=== PATIENT | female | born 1945 | race African-American/Black ===

== ENCOUNTER 2018-11-03 17:03 | Inpatient (IN) | payer MEDICARE ==
[~2018-11-03] VITALS: Ht 160 cm; Wt 57.2 kg
--- NOTE | 2018-11-03 17:09 | NUR ---
came in via ambulance. from [facility] for 8 days.
--- NOTE | 2018-11-03 17:10 | NUR ---
patient is verbally communicative. seen by dr sky
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
--- NOTE | 2018-11-03 17:17 | NUR ---
found not four
[2018-11-03 17:30] LABS: BASOPHILS # (AUTO) 0.1 K/uL (0.0-8.0); BASOPHILS % (AUTO) 1.2 % (0.0-2.0); EOSINOPHILS # (AUTO) 0.1 K/uL (0.0-0.7); EOSINOPHILS % (AUTO) 1.3 % (0.0-7.0); HEMATOCRIT 38.6 % (31.2-41.9); HEMOGLOBIN 12.6 g/dL (10.9-14.3); LYMPHOCYTES # (AUTO) 1.6 K/uL (20.0-40.0); LYMPHOCYTES % (AUTO) 34.6 % (20.5-51.5); MEAN CORPUSCULAR HEMOGLOBIN 28.1 uug (24.7-32.8); MEAN CORPUSCULAR HGB CONC 33 g/dL (32.3-35.6); MEAN CORPUSCULAR VOLUME 86.5 fL (75.5-95.3); MONOCYTES # (AUTO) 0.5 K/uL (2.0-10.0); MONOCYTES % (AUTO) 11.9 % (0.0-11.0); NEUTROPHILS # (AUTO) 2.3 K/uL (1.8-8.9); PLATELET COUNT (AUTO) 332 K/uL (179-408); RED BLOOD CELL COUNT(AUTO) 4.47 MIL/uL (3.63-4.92); WHITE BLOOD COUNT (AUTO) 4.5 K/uL (3.8-11.8)
[2018-11-03 17:37] LABS: CARBON DIOXIDE 26 mmol/L (21-32); CHLORIDE 101 mmol/L (98-107); GLUCOSE 97 mg/dL (74-106); POTASSIUM 4.6 mmol/L (3.5-5.1); UREA NITROGEN, BLOOD 26 mg/dL (7-18)
[2018-11-03 17:42] LABS: ALANINE AMINOTRANSFERASE 17 U/L (14-59); ALKALINE PHOSPHATASE 88 U/L (50-136); ASPARTATE AMINOTRANSFERASE 17 U/L (15-37); BILIRUBIN,DIRECT 0.2 mg/dL (0.0-0.2); BILIRUBIN,TOTAL 0.6 mg/dL (0.2-1.0); TOTAL PROTEIN, SERUM 7.6 g/dL (6.4-8.2)
[2018-11-03 17:44] LABS: ACETAMINOPHEN < 2.0 ug/mL (10-30)
[2018-11-03 17:45] LABS: ETHANOL < 3 MG/DL (0-0)
--- NOTE | 2018-11-03 17:49 | NUR ---
Call placed to [facility], ETA 60 minutes.
--- NOTE | 2018-11-03 17:53 | NUR ---
waiting for Vivienne to inform us of admission
--- NOTE | 2018-11-03 18:31 | NUR ---
waiting for Pinky.
[2018-11-03 18:42] LABS: *BILIRUBIN,URIN NEGATIVE (NEGATIVE); *BLOOD, URINE NEGATIVE (NEGATIVE); *CLARITY,URINE CLEAR (CLEAR); *COLOR,URINE YELLOW (YELLOW); *KETONES,URINE NEGATIVE (NEGATIVE); LEUKOCYTE ESTERASE ,URINE TRACE (NEGATIVE); NITRITE, URINE NEGATIVE (NEGATIVE); UGLUCOSE NEGATIVE (NEGATIVE)
[2018-11-03 19:01] LABS: RBC,URINE 0-3 /HPF (0-3)
[2018-11-03 19:02] LABS: SQUAMOUS EPITHELIAL CELL,UR FEW /HPF (NONE SEEN)
[2018-11-03 19:04] LABS: *AMPHETAMINE, URINE NEGATIVE (NEGATIVE); *BARBITURATE, URINE NEGATIVE (NEGATIVE); *CANNABINOID, URINE NEGATIVE (NEGATIVE); *COCCAINE, URINE NEGATIVE (NEGATIVE); *OPIATE, URINE NEGATIVE (NEGATIVE); *PHENCYCLIDINE SCREEN,URINE NEGATIVE (NEGATIVE)
--- NOTE | 2018-11-03 19:08 | NUR ---
Assumed care of patient. Patient pending inpatient admission to [facility]. No acute distress noted. Direct observation ongoing.
--- NOTE | 2018-11-03 19:09 | NUR ---
pinky here and assessed patient
--- NOTE | 2018-11-03 19:52 | NUR ---
Report to Stacy VOGT on [facility]HU
--- NOTE | 2018-11-03 20:10 | NUR ---
Pt. admitted to [facility] , under care of Dr. Carballo/Kathy. Belongs List completed
--- NOTE | 2018-11-03 20:15 | NUR ---
Received patient via wheelchair accompanied by ER Nurse. Patient is alert, oriented x 2, and able to ambulate. Patient able to answer questions but most of the time gives nonsensical answers. No complaints at the moment. All her belonging and contraband items accounted for with help of INSPECTOR PRECISION. Offered patient dinner, noted with good appetite. Preeti suicidal ideation but has paranoid delusions. Will continue to monitor.
[2018-11-03] MEDS ORDERED: TEMAZEPAM 7.5 MG CAPSULE PO PRN (20:30)
[2018-11-03] MEDS ORDERED: ACETAMINOPHEN 325 MG TABLET PO PRN (20:30)
[2018-11-03] MEDS ORDERED: MAG HYDROX/AL HYDROX/SIMETH 30 ML LIQUID UDC PO PRN (20:30)
[2018-11-03] MEDS ORDERED: BLOOD SUGAR DIAGNOSTIC 1 EACH STRIP VI ONE (20:30)
[2018-11-03] MEDS ORDERED: MAGNESIUM HYDROXIDE 30 ML LIQUID UDC PO PRN (20:30)
[2018-11-03 21:13] VITALS: BP 133/91
--- NOTE | 2018-11-03 22:30 | NUR ---
Offered patient sleeping medication, but patient decline to take any medications.
--- NOTE | 2018-11-04 05:44 | NUR ---
Patient slept intermittently throughout the night, total of 4.00 hours. No complaints were made. Denies suicidal ideation but still with hallucinations. Gets confused but redirectable Attended all needs. Ensured safety and comfort. No other untoward events noted.
--- NOTE | 2018-11-04 06:15 | NUR ---
Patient woke up, repetitively trying to go in the nurse's station but redirectable but still wanders in the hallway. Patient refused to have blood drawn this morning.
[2018-11-04 07:30] VITALS: BP 91/62
[2018-11-04] MEDS: CEphaleXIN 500 MG CAPSULE PO SCH ×2 (08:46→17:34)
[2018-11-04] MEDS: LORAZEPAM 0.5 MG TABLET PO PRN (08:46)
--- NOTE | 2018-11-04 10:42 | NUR ---
Gps/Manager Sourcing- Wanders around, constant redirections provided. Hesitancy in taking her routine meds. noted, when prompted and encouraged to take meds. she tries to hide med. pretending she took it. Speech confused and disoriented, unable to formulate plan for self.
[2018-11-04 16:00] VITALS: BP 105/56
[2018-11-04 21:43] VITALS: BP 118/67
[2018-11-04] MEDS ORDERED: RIVASTIGMINE TARTRATE 1.5 MG CAPSULE PO ONE (22:45)
[2018-11-04] MEDS ORDERED: risperiDONE 0.5 MG TABLET PO ONE (22:45)
[2018-11-05 07:30] VITALS: BP 127/79
[2018-11-05] MEDS: risperiDONE 0.5 MG TABLET PO SCH ×2 (09:00→20:44)
[2018-11-05] MEDS: RIVASTIGMINE TARTRATE 1.5 MG CAPSULE PO SCH ×2 (09:00→20:44)
[2018-11-05] MEDS: CEphaleXIN 500 MG CAPSULE PO SCH ×2 (09:24→17:11)
[2018-11-05 16:00] VITALS: BP 125/67
[2018-11-05 20:09] VITALS: BP 152/93
--- NOTE | 2018-11-05 23:04 | NUR ---
Received Pt pacing the hallways anxious and restless. Pt educated regarding elevated BP and asked if she would take medication, Pt stated she was ready for her meds. Upon bring the meds to the Pt, she stated, "I already took them, I don't need any more pills." Pt was prompted and encouraged to take her meds, but she continued to refused. Medications wasted. Pt denies pain or any s/s r/t HTN. Will continue to monitor.
[2018-11-06 07:30] VITALS: BP 127/67
[2018-11-06] MEDS: RIVASTIGMINE TARTRATE 1.5 MG CAPSULE PO SCH ×2 (08:57→20:07)
[2018-11-06] MEDS: CEphaleXIN 500 MG CAPSULE PO SCH ×2 (08:57→16:14)
[2018-11-06] MEDS: risperiDONE 0.5 MG TABLET PO SCH ×2 (08:58→20:07)
--- NOTE | 2018-11-06 14:41 | NUR ---
Initial Discharge Note Patient is currently homeless and will be admitted to a fpc facility upon discharge. Patient has no social support and no family or friends contact. SW will work with patient and MD regarding appropriate discharge plan. SW will form a safe and proper discharge plan.
--- NOTE | 2018-11-06 14:44 | NUR ---
FIREARMS REPORT: Rating Officer completed and submitted a [employer] firearms report for 5250 grave disability certification. A copy of report has been placed in patient chart.
[2018-11-06 15:23] VITALS: BP 113/77
[2018-11-06 20:32] VITALS: BP 117/71
[2018-11-06] MEDS ORDERED: CLONAZEPAM 1 MG TABLET PO SCH (21:00)
[2018-11-07 07:30] VITALS: BP_SYST 135; BP_SYST 147; BP_DIAS 75; BP_DIAS 79
[2018-11-07] MEDS: CEphaleXIN 500 MG CAPSULE PO SCH ×2 (08:57→17:37)
[2018-11-07] MEDS: RIVASTIGMINE TARTRATE 1.5 MG CAPSULE PO SCH ×2 (08:57→20:32)
[2018-11-07] MEDS: risperiDONE 0.5 MG TABLET PO SCH ×2 (08:57→20:32)
[2018-11-07] MEDS ORDERED: CLONAZEPAM 0.5 MG TABLET PO SCH (09:00)
--- NOTE | 2018-11-07 14:20 | NUR ---
GPS: Nursing Notes: Right Swollen Arm: During physical assessment, staff noticed right arm swollen, patient stating "This is and old injury..", denies any pain or discomfort, informed charge nurse and Monik Thornton NP informed and stated that she is going to order U/S of bilateral arms, continue to monitor for safety, continue with treatment plan.
[2018-11-07] MEDS ORDERED: DOCUSATE SODIUM 100 MG CAPSULE PO PRN (14:30)
[2018-11-07 15:19] VITALS: BP 133/75
[2018-11-07] MEDS: CLONAZEPAM 0.5 MG TABLET PO SCH (17:37)
[2018-11-07] MEDS ORDERED: risperiDONE 0.5 MG TABLET PO SCH (21:00)
[2018-11-07 21:49] VITALS: BP 124/75
--- NOTE | 2018-11-08 06:21 | NUR ---
No behavioral issues this shift. However, patient needed frequent re-direction. Patient tells me she sees things that are not there. Vital signs stable. No acute distress. Med Compliant. Slept fairly well this shift. Safety and comfort measures maintained t/o shift.
[2018-11-08 07:30] VITALS: BP 164/93
[2018-11-08] MEDS: CLONAZEPAM 0.5 MG TABLET PO SCH ×3 (08:27→17:25)
[2018-11-08] MEDS: RIVASTIGMINE TARTRATE 1.5 MG CAPSULE PO SCH ×2 (08:27→23:07)
[2018-11-08] MEDS: risperiDONE 0.5 MG TABLET PO SCH ×2 (08:28→23:07)
[2018-11-08] MEDS: CEphaleXIN 500 MG CAPSULE PO SCH ×2 (08:28→16:52)
[2018-11-08 16:00] VITALS: BP 111/68
[2018-11-08] MEDS ORDERED: FLEET ENEMA 133 ML BOTTLE RC PRN (16:00)
[2018-11-08 20:47] VITALS: BP 121/69
--- NOTE | 2018-11-08 22:30 | NUR ---
INITIALLY PATIENT REFUSED ALL HER QHS MEDICATION; HOWEVER, WHEN DR STARKS CAME TO EVALUATED HER, SHE AGREED TO TAKE MEDICATION. AFTER MULTIPLE REDIRECTION PT WAS ABLE TO TAKE ALL HER QHS MEDICATIONS. WILL CONTINUE TO MONITOR.
[2018-11-09 07:30] VITALS: BP 137/73
[2018-11-09] MEDS: CLONAZEPAM 0.5 MG TABLET PO SCH ×3 (09:00→18:15)
[2018-11-09] MEDS: risperiDONE 0.5 MG TABLET PO SCH ×2 (09:00→20:27)
[2018-11-09] MEDS: RIVASTIGMINE TARTRATE 1.5 MG CAPSULE PO SCH ×2 (09:00→20:26)
[2018-11-09 18:00] VITALS: BP 139/73
[2018-11-09 20:00] VITALS: BP 144/83
[2018-11-10 07:52] VITALS: BP 116/80
[2018-11-10] MEDS: RIVASTIGMINE TARTRATE 1.5 MG CAPSULE PO SCH ×2 (08:48→20:37)
[2018-11-10] MEDS: risperiDONE 0.5 MG TABLET PO SCH ×2 (08:48→20:37)
[2018-11-10] MEDS: CLONAZEPAM 0.5 MG TABLET PO SCH ×3 (08:48→16:48)
[2018-11-10 16:00] VITALS: BP 126/70
[2018-11-10 20:20] VITALS: BP 156/83
--- NOTE | 2018-11-11 06:36 | NUR ---
GPS. Patient was cooperative with care and medication regimen. Slept 9 hours, no PRN meds given. No aggressive behavior noted during the shift. Will continue POC and monitoring for safety.
[2018-11-11 08:01] VITALS: BP 139/79
[2018-11-11] MEDS: risperiDONE 0.5 MG TABLET PO SCH ×2 (08:31→20:29)
[2018-11-11] MEDS: RIVASTIGMINE TARTRATE 1.5 MG CAPSULE PO SCH ×2 (08:31→20:29)
[2018-11-11] MEDS: CLONAZEPAM 0.5 MG TABLET PO SCH ×3 (08:31→16:25)
--- NOTE | 2018-11-11 16:06 | NUR ---
GPS: Nursing Notes: Noncompliance With Medications: Patient is awake and responding to her name, impaired judgment, poor insight, believes that she is leaving tonight, refusing her medications, stated, "I don't need pills.. I do not work here..", confused, wandering around the unit, believes that she works here at times, A/Ox1, unkempt appearance, unable to formulate a plan for self care, continue with treatment plan.
[2018-11-11 16:34] VITALS: BP 129/82
[2018-11-11 21:18] VITALS: BP 119/71
[2018-11-12 07:30] VITALS: BP 137/75
[2018-11-12] MEDS: risperiDONE 0.5 MG TABLET PO SCH ×2 (08:37→20:13)
[2018-11-12] MEDS: RIVASTIGMINE TARTRATE 1.5 MG CAPSULE PO SCH ×2 (08:37→20:13)
[2018-11-12] MEDS: CLONAZEPAM 0.5 MG TABLET PO SCH ×3 (08:37→16:25)
[2018-11-12 16:17] VITALS: BP 114/78
--- NOTE | 2018-11-12 19:20 | NUR ---
RECIEVED PT ON BED. PT SHOWS NO SIGNS OF ACUTE DISTRESS.PT HAVE EPISODES OF FORGETFULNESS. NEEDS REORIENTATION. SAFETY AND COMFORT PROVIDED. WILL CONTINUE TO MONITOR.
[2018-11-12 19:48] VITALS: BP 139/80
[2018-11-12] MEDS: LORAZEPAM 0.5 MG TABLET PO PRN (21:01)
--- NOTE | 2018-11-13 07:04 | NUR ---
PT SLEPT 7.3 HOURS. PT IN NO ACUTE DITRESS..PT GIVEN ATIVAN AT 2101 BECAUSE PT WAS RESTLESS AND WALKING IN THE HALLWAY BACK AND FORTH. PT CALM AFTER AN HOUR. PT TOLERATED THE MEDICATION. PT GIVEN TYLENOL PER PT HAVE STOMACH PAIN. PT CONDITION IMPROVED. PT PRESCRIBED MEDICATION GIVEN AND PT TOLERATED IT WELL.SAFETY AND COMFORT PROVIDED.ALL NEEDS ARE MET.WILL ENDORSE ACCORDINGLY TO INCOMING NURSE FOR CONTINUITY OF CARE.
[2018-11-13 07:30] VITALS: BP 136/80
[2018-11-13] MEDS: risperiDONE 0.5 MG TABLET PO SCH ×2 (09:00→21:00)
[2018-11-13] MEDS: CLONAZEPAM 0.5 MG TABLET PO SCH ×3 (09:00→16:49)
[2018-11-13] MEDS: RIVASTIGMINE TARTRATE 1.5 MG CAPSULE PO SCH ×2 (09:00→21:00)
[2018-11-13 16:16] VITALS: BP 131/79
--- NOTE | 2018-11-13 20:00 | NUR ---
RECEIVED PATIENT IN THE HALLWAY, SHE IS NOTED A/O X 1, WONDERING THE UNIT, DISORGANIZED SPEECH, TANGENTAL. POOR INSIGHT INTO HER ADMISSION TO MHU. V/S STABLE AT THIS TIME. WILL CONTINUE TO MONITOR.
[2018-11-13] MEDS: LORAZEPAM 0.5 MG TABLET PO PRN (20:25)
[2018-11-13 20:35] VITALS: BP 146/83
--- NOTE | 2018-11-13 22:00 | NUR ---
PATIENT REFUSED ALL HER QHS MEDICATION. HOWEVER, SHE WAS ABLE TO TAKE ATIVAN 0.5MG PO PRN FOR ANXIETY. MEDARDO HAS BEEN FILE. WILL CONTINUE TO MONITOR.
--- NOTE | 2018-11-14 06:55 | NUR ---
PATIENT SLEPT FOR APPROX 4.30 HRS THROUGH THE NIGHT. SHE CONTINUE ASLEEP OF NOW. WILL CONTINUE TO MONITOR.
[2018-11-14 07:30] VITALS: BP 144/62
[2018-11-14] MEDS: RIVASTIGMINE TARTRATE 1.5 MG CAPSULE PO SCH ×2 (08:51→20:25)
[2018-11-14] MEDS: CLONAZEPAM 0.5 MG TABLET PO SCH ×3 (08:51→16:34)
[2018-11-14] MEDS: risperiDONE 0.5 MG TABLET PO SCH (08:51)
--- NOTE | 2018-11-14 13:04 | NUR ---
Family Information SW received call from ISRAEL Clarke [[phone]] that patient has a missing person report filed and family has been trying to find her. Patient has a Niece, Kendy Sheldon [[phone]] and sister, Lauryn Enamorado [[phone]] who contacted BJORN anf requested to be called for any discharge updates.
[2018-11-14 16:00] VITALS: BP 155/84
[2018-11-14] MEDS: HALOPERIDOL 0.5 MG TABLET PO SCH (16:34)
[2018-11-14] MEDS ORDERED: HALOPERIDOL LACTATE 5 MG/1 ML VIAL IM PRN (17:00)
--- NOTE | 2018-11-14 20:45 | NUR ---
RECEIVED PATIENT IN THE HALLWAY, A/O X 1, CALM, DISORGANIZED SPEECH, TANGENTAL, POOR JUDGEMENT, POOR INSIGHT, V/S STABLE AT THIS TIME. PATIENT REFUSED HS MEDICATION. WILL CONTINUE TO MONITOR FOR PATIENT SAFETY
[2018-11-14 21:16] VITALS: BP 105/68
--- NOTE | 2018-11-15 06:17 | NUR ---
PATIENT SLEPT FOR 6 HOURS, PATIENT WANDERS AROUND THE HALLWAY, REDIRECTED BACK TO BED, V/S STABLE, FREE FROM INJURY, WILL CONTINUE TO MONITOR PATIENT SAFETY
[2018-11-15 07:30] VITALS: BP 167/90
[2018-11-15] MEDS: HALOPERIDOL 0.5 MG TABLET PO SCH ×3 (08:19→17:24)
[2018-11-15] MEDS: RIVASTIGMINE TARTRATE 1.5 MG CAPSULE PO SCH ×2 (08:19→20:20)
[2018-11-15] MEDS: CLONAZEPAM 0.5 MG TABLET PO SCH ×3 (08:19→17:24)
[2018-11-15 16:00] VITALS: BP 113/63
[2018-11-15 20:00] VITALS: BP 133/73
--- NOTE | 2018-11-16 00:37 | NUR ---
PATIENT RECEIVED WONDERING THE HALLWAY, PATIENT ALERT/ORIENTED X1 PATIENT CONFUSED AND LESS INTRUSIVE. PATIENT COMPLAINT WITH MEDICATION. BED IN LOWEST POSITION, BED LOCKED, AND BED ALARM ON WHILE IN BED.NO AGGRESSIVE OR COMBATIVE BEHAVIOR NOTED, WILL CONTINUE AND REDIRECT.
[2018-11-16 07:30] VITALS: BP 155/88
[2018-11-16] MEDS: RIVASTIGMINE TARTRATE 1.5 MG CAPSULE PO SCH ×2 (09:10→20:30)
[2018-11-16] MEDS: CLONAZEPAM 0.5 MG TABLET PO SCH ×4 (09:11→20:27)
[2018-11-16] MEDS: HALOPERIDOL 0.5 MG TABLET PO SCH ×3 (09:11→17:13)
[2018-11-16 16:00] VITALS: BP 128/72
[2018-11-16 20:21] VITALS: BP 100/59
[2018-11-16] MEDS ORDERED: CLONAZEPAM 1 MG TABLET PO SCH (21:00)
--- NOTE | 2018-11-17 06:33 | NUR ---
GPS: Remain calm and cooperative with meds and care. slept 8.5 hrs through the night. no agitation noted at this time. resting on bed comfortably.
[2018-11-17 07:30] VITALS: BP 140/69
[2018-11-17] MEDS: HALOPERIDOL 0.5 MG TABLET PO SCH ×2 (08:41→13:05)
[2018-11-17] MEDS: CLONAZEPAM 0.5 MG TABLET PO SCH (08:42)
[2018-11-17] MEDS: RIVASTIGMINE TARTRATE 1.5 MG CAPSULE PO SCH (08:42)
--- NOTE | 2018-11-17 11:41 | NUR ---
Patient will be discharged to [facility] facility, [facility] [[address] [place] [address]; ] via Ambulance transportation. Please arrange Ambulance transportation for patient to be picked up at 2:00pm. BJORN spoke with Dara [Core Composer Machine Tender at [facility]; ] who stated patient can admit today. Patient does not have any family contacts at this time. Patient is alert and oriented x2, and is unable to plan for self-care, and denies any suicidal or homicidal ideation. Patient is aware and agreeable with discharge plans. Patient will continue to follow-up with her Psychiatrist Dr. Carballo and Manager Monitoring Dr. Myles at [facility] [[address] [place] [address]; ]. Patient was provided additional mental health referrals to [facility] Crisis Line and the National Suicide Prevention Lifeline . Addendum: 11/17/18 at 1142 by TOMAS MOORE Discharge Note
--- NOTE | 2018-11-17 12:30 | NUR ---
Gps/Poacher Operator- Called [facility], report was given to Vishal Hernández. Patient was well informed of her discharge plan today. All belongings given back to patient. No distress, no complaints of any pain or any discomfort noted.
--- NOTE | 2018-11-17 13:45 | NUR ---
Gps/Auction Clerk- Discharged via ambulance to [facility], no distress, no complaints noted, all belongings given back to patient.
== END 2018-11-17 13:45 | DRG 885 ==
LOC: ER 17:09 → GPS 19:58
PROVIDERS: ADMIT Psychiatry & Neurology Psychiatry; ATTEND Registered Nurse
DX: F29 Unspecified psychosis not due to a substance or known physiological condition (principal); N39.0 Urinary tract infection, site not specified; F03.91 Unspecified dementia, unspecified severity, with behavioral disturbance; Z59.0 Homelessness; Z87.442 Personal history of urinary calculi; R79.89 Other specified abnormal findings of blood chemistry; Z91.83 Wandering in diseases classified elsewhere; E66.9 Obesity, unspecified
CPT/HCPCS: 36415; 71045; 80307; 85025; 93005; A4663; G0480; G0480-TC

== ENCOUNTER 2019-01-04 17:47 | Inpatient (IN) | payer MEDICARE ==
[~2019-01-04] VITALS: Ht 160 cm; Wt 58.5 kg
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
[2019-01-04] MEDS ORDERED: RISP0.253 PO (17:59)
[2019-01-04] MEDS ORDERED: EXELON (17:59)
[2019-01-04] MEDS ORDERED: DOCU-141 PO (18:07)
[2019-01-04] MEDS ORDERED: CLON0.5T PO (18:07)
[2019-01-04] MEDS ORDERED: ACET-2154 PO (18:07)
[2019-01-04] MEDS ORDERED: HALO0.5T6 PO (18:07)
[2019-01-04] MEDS ORDERED: RIVA1PAT TD (18:07)
[2019-01-04 18:10] LABS: BASOPHILS # (AUTO) 0.1 K/uL (0.0-8.0); BASOPHILS % (AUTO) 0.9 % (0.0-2.0); EOSINOPHILS # (AUTO) 0.1 K/uL (0.0-0.7); EOSINOPHILS % (AUTO) 0.9 % (0.0-7.0); HEMATOCRIT 39.5 % (31.2-41.9); HEMOGLOBIN 12.7 g/dL (10.9-14.3); LYMPHOCYTES # (AUTO) 1.8 K/uL (20.0-40.0); LYMPHOCYTES % (AUTO) 32.3 % (20.5-51.5); MEAN CORPUSCULAR HEMOGLOBIN 28.1 uug (24.7-32.8); MEAN CORPUSCULAR HGB CONC 32 g/dL (32.3-35.6); MEAN CORPUSCULAR VOLUME 87.1 fL (75.5-95.3); MONOCYTES # (AUTO) 0.7 K/uL (2.0-10.0); MONOCYTES % (AUTO) 12.7 % (0.0-11.0); NEUTROPHILS % (AUTO) 53.2 % (38.5-71.5); PLATELET COUNT (AUTO) 329 K/uL (179-408); RED BLOOD CELL COUNT(AUTO) 4.53 MIL/uL (3.63-4.92); WHITE BLOOD COUNT (AUTO) 5.6 K/uL (3.8-11.8)
[2019-01-04 18:15] LABS: CARBON DIOXIDE 29 mmol/L (21-32); CHLORIDE 102 mmol/L (98-107); GLUCOSE 77 mg/dL (74-106); POTASSIUM 3.9 mmol/L (3.5-5.1); UREA NITROGEN, BLOOD 21 mg/dL (7-18)
[2019-01-04 18:20] LABS: ALANINE AMINOTRANSFERASE 14 U/L (14-59); ALKALINE PHOSPHATASE 90 U/L (50-136); ASPARTATE AMINOTRANSFERASE 17 U/L (15-37); BILIRUBIN,DIRECT 0.3 mg/dL (0.0-0.2); BILIRUBIN,TOTAL 1.2 mg/dL (0.2-1.0); TOTAL PROTEIN, SERUM 7.7 g/dL (6.4-8.2)
[2019-01-04 18:23] LABS: ETHANOL < 3 MG/DL (0-0)
--- NOTE | 2019-01-04 18:24 | NUR ---
PT IS IN ROOM #2A. DR NIEVES EVALUATED THE PT.
[2019-01-04 18:34] LABS: *BILIRUBIN,URIN NEGATIVE (NEGATIVE); *BLOOD, URINE 2+ (NEGATIVE); *COLOR,URINE YELLOW (YELLOW); *KETONES,URINE NEGATIVE (NEGATIVE); LEUKOCYTE ESTERASE ,URINE 1+ (NEGATIVE); NITRITE, URINE NEGATIVE (NEGATIVE); PH,URINE 6.5 (5.0-8.0); UGLUCOSE NEGATIVE (NEGATIVE)
[2019-01-04 18:36] LABS: THYROID STIMULATING HORMONE 3.206 mIU/mL (0.358-3.740)
[2019-01-04 18:43] LABS: *CLARITY,URINE SLIGHTLY HAZY (CLEAR)
[2019-01-04 18:50] LABS: MUCUS,URINE MODERATE /LPF (0-FEW); SQUAMOUS EPITHELIAL CELL,UR FEW /HPF (NONE SEEN)
[2019-01-04 18:58] LABS: *AMPHETAMINE, URINE NEGATIVE (NEGATIVE); *BARBITURATE, URINE NEGATIVE (NEGATIVE); *CANNABINOID, URINE NEGATIVE (NEGATIVE); *COCCAINE, URINE NEGATIVE (NEGATIVE); *OPIATE, URINE NEGATIVE (NEGATIVE); *PHENCYCLIDINE SCREEN,URINE NEGATIVE (NEGATIVE)
[2019-01-04] MEDS ORDERED: CEFTRIAXONE 2 G in IV DEXTROSE 5% 100 ML IV ONE (19:00)
[2019-01-04] MEDS ORDERED: CEFTRIAXONE 1 G VIAL ONE (19:15)
--- NOTE | 2019-01-04 19:34 | NUR ---
report given to learning disabilities resource teachermanager shift.
[2019-01-04] MEDS ORDERED: ACETAMINOPHEN 325 MG TABLET PO PRN (20:15)
--- NOTE | 2019-01-04 21:43 | NUR ---
ADMITTING REPORT GIVEN TO TARI VOGT.
[2019-01-04] MEDS ORDERED: MAGNESIUM HYDROXIDE 30 ML LIQUID UDC PO PRN (22:00)
[2019-01-04] MEDS ORDERED: MAG HYDROX/AL HYDROX/SIMETH 30 ML LIQUID UDC PO PRN (22:00)
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
--- NOTE | 2019-01-05 06:00 | NUR ---
slept 6.5 hours, total.
[2019-01-05 08:53] VITALS: BP 153/81
[2019-01-05] MEDS: DOCUSATE SODIUM 100 MG CAPSULE PO SCH ×2 (08:57→16:27)
[2019-01-05] MEDS: ACETAMINOPHEN 325 MG TABLET PO PRN (11:29)
--- NOTE | 2019-01-05 11:33 | NUR ---
Patient was complaining of pain on left side of her face. Tylenol 650mg PO given for pain.
[2019-01-05] MEDS: CEphaleXIN 500 MG CAPSULE PO SCH ×2 (13:04→21:17)
--- NOTE | 2019-01-05 13:15 | NUR ---
Initial Discharge note Patient currently lives at home [[address], [place] [address]] with Lauryn Enamorado [sister;[phone]] and Aisha pires [[phone]]. Patient will return here after discharge from hospital. SW will continue to work with patient, family, and MD to ensure a safe and proper discharge plan.
[2019-01-05 16:00] VITALS: BP 120/90
[2019-01-05 20:42] VITALS: BP 162/79
[2019-01-05] MEDS: TEMAZEPAM 7.5 MG CAPSULE PO PRN (21:34)
[2019-01-06] MEDS: CEphaleXIN 500 MG CAPSULE PO SCH ×3 (05:18→21:09)
--- NOTE | 2019-01-06 06:24 | NUR ---
GPS: Remain calm and cooperative meds and care. slept 6 hrs after restoril 7.5 mg po given continue plan of care.
[2019-01-06 07:57] VITALS: BP 163/88
[2019-01-06] MEDS: DOCUSATE SODIUM 100 MG CAPSULE PO SCH ×2 (08:38→16:51)
[2019-01-06 15:55] VITALS: BP 116/79
[2019-01-06 19:36] VITALS: BP 126/74
[2019-01-06] MEDS: TEMAZEPAM 7.5 MG CAPSULE PO PRN (22:37)
[2019-01-07] MEDS: CEphaleXIN 500 MG CAPSULE PO SCH ×3 (05:53→21:18)
--- NOTE | 2019-01-07 06:17 | NUR ---
GPS: Remain calm and cooperative. compliant with meds and care. slept 5:30 hrs after restoril 7.5 mg po given. resting on bed comfortably. continue plan of care.
[2019-01-07 07:30] VITALS: BP 128/63
[2019-01-07] MEDS: DOCUSATE SODIUM 100 MG CAPSULE PO SCH ×2 (08:36→16:10)
[2019-01-07 15:48] VITALS: BP 141/79
[2019-01-07] MEDS: HALOPERIDOL 0.5 MG TABLET PO SCH ×2 (16:10→20:19)
[2019-01-07 20:48] VITALS: BP 126/81
[2019-01-08] MEDS: ACETAMINOPHEN 325 MG TABLET PO PRN (01:36)
[2019-01-08] MEDS: TEMAZEPAM 7.5 MG CAPSULE PO PRN (01:36)
[2019-01-08] MEDS: CEphaleXIN 500 MG CAPSULE PO SCH ×3 (06:17→21:11)
[2019-01-08 07:30] VITALS: BP 128/52
[2019-01-08] MEDS: HALOPERIDOL 0.5 MG TABLET PO SCH ×3 (08:15→20:07)
[2019-01-08] MEDS: DOCUSATE SODIUM 100 MG CAPSULE PO SCH ×2 (08:15→16:20)
[2019-01-08] MEDS: LORAZEPAM 1 MG TABLET PO PRN ×2 (09:02→14:59)
--- NOTE | 2019-01-08 14:21 | NUR ---
gps: received patient AOx1, patient confused, patient poor insight and walking around, needed to be prompt when giving medication, will continue monitor
[2019-01-08 15:29] VITALS: BP 115/71
--- NOTE | 2019-01-08 18:42 | NUR ---
seen by screen printing equipment setter, screen printing equipment setter trim toenails, patient tolerated procedure with NNO made, will continue monitor,
[2019-01-08 20:00] VITALS: BP 169/86
[2019-01-08] MEDS: RIVASTIGMINE TARTRATE 1.5 MG CAPSULE PO SCH (20:07)
[2019-01-08 20:57] VITALS: BP 149/81
[2019-01-09] MEDS: CEphaleXIN 500 MG CAPSULE PO SCH ×3 (06:24→20:50)
[2019-01-09 07:30] VITALS: BP 170/83
[2019-01-09] MEDS: DOCUSATE SODIUM 100 MG CAPSULE PO SCH ×2 (08:40→16:15)
[2019-01-09] MEDS: RIVASTIGMINE TARTRATE 1.5 MG CAPSULE PO SCH ×2 (08:41→21:06)
[2019-01-09] MEDS: HALOPERIDOL 0.5 MG TABLET PO SCH ×3 (08:41→21:06)
--- NOTE | 2019-01-09 11:38 | NUR ---
GPS :received patient AOx1, patient ambulatory, verbalizes that she needs to go home, patient took shower,
--- NOTE | 2019-01-09 13:10 | NUR ---
FIREARMS REPORT: Track Production Engineer completed and submitted a [employer] firearms report for 5150 grave disability certification. A copy of report has been placed in patient chart.
[2019-01-09 15:14] VITALS: BP 109/57
--- NOTE | 2019-01-09 18:00 | NUR ---
patient been calm and cooperative , monitored for fall risk, patient compliant with medication with prompting, patient denies SI and Hi, verbalizes that she wanted to go home
[2019-01-09 20:33] VITALS: BP 138/76
--- NOTE | 2019-01-09 22:00 | NUR ---
received to care, pleasant upon approach. needy at times. initially refused her medications, but dis take them, after being encourageed by Dr Carballo. currently in bed, asleep. no distress noted.
[2019-01-10] MEDS: CEphaleXIN 500 MG CAPSULE PO SCH ×3 (05:42→21:07)
[2019-01-10 07:30] VITALS: BP 170/87
[2019-01-10] MEDS: DOCUSATE SODIUM 100 MG CAPSULE PO SCH ×2 (08:46→16:11)
[2019-01-10] MEDS: RIVASTIGMINE TARTRATE 1.5 MG CAPSULE PO SCH ×2 (08:47→20:42)
[2019-01-10] MEDS: HALOPERIDOL 0.5 MG TABLET PO SCH ×4 (08:47→20:42)
[2019-01-10 16:00] VITALS: BP 149/82
--- NOTE | 2019-01-10 18:27 | NUR ---
patient been calm and cooperative, compliant with medication, seen talking with roommate, patient denies SI and HI
--- NOTE | 2019-01-10 20:00 | NUR ---
RECEIVED PATIENT LYING IN BED. PATIENT AOX1, MAINLY CONFUSED, DENIES SI AND HI. NO DELUSION OBSERVED AT THIS TIME. DENIES ANY PAIN OR SOB. VS WNL. CONTINUE TO MONITOR.
[2019-01-10 20:20] VITALS: BP 120/72
--- NOTE | 2019-01-10 21:20 | NUR ---
Dr. Carballo came to visit patient.
[2019-01-11] MEDS: CEphaleXIN 500 MG CAPSULE PO SCH ×3 (05:28→20:37)
--- NOTE | 2019-01-11 05:56 | NUR ---
No adverse reaction noted from PO ABX for UTI. Patient compliant with medication.
--- NOTE | 2019-01-11 06:01 | NUR ---
Patient slept approximately 8.0 hours.
[2019-01-11] MEDS: HALOPERIDOL 0.5 MG TABLET PO SCH ×4 (08:51→20:37)
[2019-01-11] MEDS: RIVASTIGMINE TARTRATE 1.5 MG CAPSULE PO SCH ×2 (08:51→20:37)
[2019-01-11] MEDS: DOCUSATE SODIUM 100 MG CAPSULE PO SCH ×2 (08:51→17:00)
[2019-01-11 10:59] VITALS: BP 175/103
--- NOTE | 2019-01-11 16:24 | NUR ---
Gps/Fountain Clerk- Had been quiet, redirectable , medication compliant. Pleasant affect encouraged continued participation in her group therapy.
[2019-01-11 17:01] VITALS: BP 127/75
[2019-01-11 20:40] VITALS: BP 121/68
--- NOTE | 2019-01-11 22:00 | NUR ---
received to care, lying in bed, pleasant upon approach. compliant with medications and staff direction. as of 2199, she appears to be asleep. no distress noted.
[2019-01-12] MEDS: CEphaleXIN 500 MG CAPSULE PO SCH (06:57)
--- NOTE | 2019-01-12 06:58 | NUR ---
slept well last night. continues to sleep. no distress noted.
[2019-01-12 08:05] VITALS: BP 160/90
[2019-01-12] MEDS: HALOPERIDOL 0.5 MG TABLET PO SCH ×2 (09:00→13:02)
[2019-01-12] MEDS: DOCUSATE SODIUM 100 MG CAPSULE PO SCH (09:00)
[2019-01-12] MEDS: RIVASTIGMINE TARTRATE 1.5 MG CAPSULE PO SCH (09:00)
--- NOTE | 2019-01-12 09:11 | NUR ---
Discharge Note Patient will be discharged today back home [[address] [place] [address]; [phone]]. Patient will be picked up by family member, Aisha Sheldon [Niece;[phone]] back home at 11AM. Patient is alert and oriented times 2-3, denies suicidal or homicidal ideation, and is aware and agreeable with discharge plans. Patient has great family support and will living with her sister, Lauryn Enamorado [[phone]] who will be providing support for the patient. Patient will follow up with a Psychiatrist at [facility] service in [place], [place] [[address] [place] [address]; ]. Patient will also follow up with a new Primary Care Physician, Dr. Christie Richard on Tuesday January 15, 2019 at 11AM [Address: [address] [place] [id number]; ] Patient was provided with outpatient mental health resources to [facility] Crisis Line , and the National Suicide Prevention Lifeline .
--- NOTE | 2019-01-12 15:30 | NUR ---
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 All belongings given back to patient. Reviewed medications/prescriptions, safety, skin care,dietary needs, follow up with PMD, and Psychiatrist as recommended, family verbalized understanding.
== END 2019-01-12 15:30 | disposition home or self-care (01) | DRG 885 ==
LOC: ER 17:48 → GPS 21:48
PROVIDERS: ADMIT Psychiatry & Neurology Psychiatry; ATTEND Internal Medicine
PROC: 0HBRXZZ Excision of Toe Nail, External Approach (ICD-10-PCS; principal; 2019-01-08)
DX: F29 Unspecified psychosis not due to a substance or known physiological condition (principal); N39.0 Urinary tract infection, site not specified; G89.29 Other chronic pain; Z87.442 Personal history of urinary calculi; F03.90 Unspecified dementia, unspecified severity, without behavioral disturbance, psychotic disturbance, mood disturbance, and anxiety; L60.2 Onychogryphosis; F41.9 Anxiety disorder, unspecified; B35.1 Tinea unguium; F32.9 Major depressive disorder, single episode, unspecified
CPT/HCPCS: 36415; 70030-TC; 70450; 71045; 80307; 84443; 85025; 87086; 93005; A4663; G0480; J0696; J3490